=== PATIENT | male | born 1985 | race Caucasian/White ===

== ENCOUNTER 2020-07-10 15:25 | Emergency (ER) ==
[2020-07-10 17:07] LABS: #Lymphocytes 1.2 thou/uL (1.20-3.40); #Monocytes 0.4 thou/uL (0.11-0.59); #Neutrophils 9.8 thou/uL (1.40-6.50); %Basophils 0.1 % (0.0-1.0); %Eosinophils 0.3 % (0.0-10.0); %Lymphocytes 10.4 % (21.0-51.0); %Monocytes 3.5 % (0.0-10.0); %Neutrophils 85.8 % (42.0-75.0); Mean Corpuscular HGB CONC 31.6 g/dL (32.0-36.0); Mean Corpuscular Hemoglobin 27.9 pg (27.0-31.0); Mean Corpuscular Volume 88.3 fL (78.0-98.0); Mean Platelet Volume 9.9 fL (7.4-10.4); Platelet Count 158 thou/uL (130-400); RBC Distribution Width 15.3 % (11.5-14.5); Red Blood Cell (RBC) Count 5.75 mill/uL (4.70-6.10); White Blood Cell (WBC) Count 11.4 thou/uL (4.8-10.8)
[2020-07-10 17:32] LABS: Anion Gap 14 mmol/L (10-20); BUN (Urea Nitrogen) 15 mg/dL (8.9-20.6); Calc. Creatinine Clearance 0 mL/min (70-130); Calcium 9.4 mg/dL (7.8-10.44); Carbon Dioxide 27 mmol/L (22-29); Chloride 101 mmol/L (98-107); Glucose 99 mg/dL (70-105); Potassium 4.2 mmol/L (3.5-5.1); Sodium 138 mmol/L (136-145)
== END 2020-07-10 17:45 | disposition home or self-care (01) ==
LOC: ERS 15:25
DX: I83.892 Varicose veins of left lower extremity with other complications (principal); I10 Essential (primary) hypertension; F17.210 Nicotine dependence, cigarettes, uncomplicated
CPT/HCPCS: 36415; 80048; 85025; 99283

== ENCOUNTER 2022-04-20 13:37 | Inpatient (IN) | payer BC ==
[2022-04-20 14:15] LABS: Hemoglobin 15.8 g/dL (14.0-18.0); Mean Corpuscular HGB CONC 32.4 g/dL (32.0-36.0); Mean Corpuscular Hemoglobin 31.9 pg (27.0-31.0); Mean Corpuscular Volume 98.6 fl (78.0-98.0); RBC Distribution Width 15.9 % (11.5-14.5); Red Blood Cell (RBC) Count 4.93 mill/uL (4.70-6.10)
[2022-04-20 14:17] LABS: Mean Platelet Volume 11.1 fL (7.4-10.4); Platelet Count 121 10x3/uL (130-400); White Blood Cell (WBC) Count 17.5 10x3/uL (4.8-10.8)
[2022-04-20 14:20] LABS: INR-International Normal Ratio 1.2; PTT 34.3 sec (22.9-36.1); Prothrombin Time 15.6 sec (12.0-14.7)
[2022-04-20 14:25] LABS: Band 54 % (5-11); Lymphocytes 1 % (21-51); MDiff Complete? YES; Metamyelocyte 12 % (0-0); Monocytes 3 % (0-10); Myelocyte 1 % (0-0); Neutrophil 28 % (42-75); Nucleated RBC 1 % (0); Platelet Morphology Comment Appears Decreased; RBC Morphology Normal; Reactive Lymphocytes 1 % (0-10); Reflex for Review?? YES; Toxic Granulation SLIGHT; Vacuoles SLIGHT
[2022-04-20] MEDS ORDERED: VANCOMYCIN 2 GRAM/500 ML BAG 2 GM in Premix Bag 1 BAG IVPB SCH (14:30)
[2022-04-20 14:34] LABS: ALT (SGPT) 92 U/L (8-55); AST (SGOT) 213 U/L (5-34); Albumin 2.8 g/dL (3.5-5.0); Alkaline Phosphatase 70 U/L (40-110); Anion Gap 24 mmol/L (10-20); BUN (Urea Nitrogen) 44 mg/dL (8.9-20.6); Bilirubin, Total 2.3 mg/dL (0.2-1.2); Calc. Creatinine Clearance 0 mL/min (70-130); Calcium 8.1 mg/dL (7.8-10.44); Carbon Dioxide 23 mmol/L (22-29); Chloride 84 mmol/L (98-107); Estimated GFR 15; Globulin 3.6 g/dL (2.4-3.5); Glucose 76 mg/dL (70-105); Potassium 4.6 mmol/L (3.5-5.1); Protein, Total 6.4 g/dL (6.0-8.3); Sodium 126 mmol/L (136-145)
[2022-04-20] MEDS ORDERED: Cefepime 2 GM VIAL ONE (14:48)
[2022-04-20 15:02] LABS: CKMB 11.8 ng/mL (0-6.6)
[2022-04-20] MEDS ORDERED: Ondansetron PF 4 MG/2 ML Vial IVP PRN (16:37)
[2022-04-20] MEDS ORDERED: Acetaminophen 325 MG TAB PO PRN (16:37)
[2022-04-20] MEDS ORDERED: Piperacillin/Tazobactam 3.375 GM in Sodium Chloride 0.9% 100 ML IVPB SCH ×2 (17:00→18:15)
[2022-04-20 17:34] LABS: Lactic Acid 5.5 mmol/L (0.5-2.2)
[2022-04-20] MEDS: Sodium Chloride 0.9% 1,000 ML IV SCH (18:00)
[2022-04-20 18:07] LABS: SARS-CoV-2 NAA Rapid Test Not Detected (NotDetected)
[2022-04-20] MEDS: Albumin 25% 25 GM/100 ML BOT IVPB SCH ×2 (18:07→23:20)
[2022-04-20 20:45] LABS: Critical Call Chem Troponin I RESULT DECREASING
[2022-04-20 21:03] LABS: CKMB 13.4 ng/mL (0-6.6)
[2022-04-21] MEDS: Piperacillin/Tazobactam 3.375 GM in Sodium Chloride 0.9% 100 ML IVPB SCH ×3 (01:46→18:31)
[2022-04-21 02:07] LABS: Troponin I 0.215 ng/mL (< 0.028)
[2022-04-21] MEDS: Sodium Chloride 0.9% 1,000 ML IV SCH ×3 (02:13→23:45)
[2022-04-21 04:07] LABS: Band 53 % (5-11); Hemoglobin 13.7 g/dL (14.0-18.0); Hypochromia SLIGHT = 6-15 cells (100X) (0-5/hpf); Lymphocytes 3 % (21-51); MDiff Complete? YES; Mean Corpuscular HGB CONC 32.2 g/dL (32.0-36.0); Mean Corpuscular Hemoglobin 31.4 pg (27.0-31.0); Mean Corpuscular Volume 97.6 fl (78.0-98.0); Mean Platelet Volume 12.3 fL (7.4-10.4); Metamyelocyte 2 % (0-0); Monocytes 4 % (0-10); Neutrophil 37 % (42-75); Platelet Count 101 10x3/uL (130-400); Platelet Morphology Comment Appears Decreased; RBC Distribution Width 15.8 % (11.5-14.5); Reactive Lymphocytes 1 % (0-10); Red Blood Cell (RBC) Count 4.37 mill/uL (4.70-6.10); White Blood Cell (WBC) Count 14.7 10x3/uL (4.8-10.8)
[2022-04-21 04:12] LABS: Anion Gap 20 mmol/L (10-20); BUN (Urea Nitrogen) 49 mg/dL (8.9-20.6); Calc. Creatinine Clearance 44 mL/min (70-130); Calcium 7.7 mg/dL (7.8-10.44); Carbon Dioxide 23 mmol/L (22-29); Cardiac Risk 5.6 (Less than 4.5); Chloride 87 mmol/L (98-107); Cholesterol 62 mg/dl (< 200 Desired); Estimated GFR 14; Glucose 79 mg/dL (70-105); HDL Cholesterol 11 mg/dL (>60 Neg Risk); LDL Cholesterol, Calculated 8 mg/dL; Potassium 4.8 mmol/L (3.5-5.1); Sodium 125 mmol/L (136-145); Triglycerides 216 mg/dL (Less than 150)
[2022-04-21 04:29] LABS: HBCM Index 0.06 S/CO (0-0.79); Hep A IgM AB Non-Reactive (NonReactive); Hep A IgM S/CO 0.16 S/CO (0-0.79); Hep B Surf Ag Non-Reactive S/CO (NonReactive); Hep C IgG Ab Non-Reactive (NonReactive); Hep C Index 0.08 S/CO (0-0.79); Hepatitis B Core IgM Abs Non-Reactive (NonReactive); Thyroid Stimulating Hormone 3.7021 uIU/mL (0.35-4.94)
[2022-04-21 11:56] LABS: Lactic Acid 1.4 mmol/L (0.5-2.2)
[2022-04-21] MEDS: Albumin 25% 25 GM/100 ML BOT IVPB SCH ×2 (11:56→18:31)
[2022-04-21 12:25] LABS: Base Excess (BEa) -2.3 mEq/L (-2.0 to +3.0); Calcium, Ionized (arterial) 0.98 mmol/L (1.12-1.30); Carboxyhemoglobin (COHb) 1.4 gm% (0.0-3.0); Hemoglobin (Hb) 14.5 g/dL (14.0-18.0); O2 Tension (PaO2), arterial 72.7 mmHg (80.0-100.0); Potassium - ABG Lab 4.56 mmol/L (3.70-5.30); pH, Arterial 7.22 (7.35-7.45)
[2022-04-21 13:17] LABS: ALV-art Gradient 99.355 mmHg (0-20); CO2 Tension 67.7 mmHg (35.0-45.0); Puncture Site LRA
[2022-04-21] MEDS ORDERED: VANCOMYCIN 2 GRAM/500 ML BAG 2 GM in Premix Bag 1 BAG IVPB SCH (15:00)
[2022-04-21 15:43] LABS: Sodium 125 mmol/L (136-145)
[2022-04-21] MEDS ORDERED: NOREPINEPHRINE 8 MG/250 ML-D5W 250 ML ONE (18:03)
[2022-04-21] MEDS ORDERED: Furosemide 100 MG/10 ML VIAL SLOW IVP STA (18:21)
[2022-04-21] MEDS: HYDROcodone/Acetaminophen 5/325 mg Tablet PO PRN ×2 (18:21→22:17)
[2022-04-21] MEDS ORDERED: NOREPINEPHRINE 8 MG/250 ML-D5W 250 ML IVPB SCH (18:30)
[2022-04-21 19:36] LABS: Anion Gap 16 mmol/L (10-20); BUN (Urea Nitrogen) 49 mg/dL (8.9-20.6); Calc. Creatinine Clearance 45 mL/min (70-130); Carbon Dioxide 21 mmol/L (22-29); Chloride 96 mmol/L (98-107); Estimated GFR 15; Glucose 65 mg/dL (70-105); Potassium 3.8 mmol/L (3.5-5.1); Sodium 129 mmol/L (136-145)
[2022-04-22] MEDS: Albumin 25% 25 GM/100 ML BOT IVPB SCH ×2 (00:12→05:37)
[2022-04-22 06:20] LABS: ALT (SGPT) 61 U/L (8-55); AST (SGOT) 145 U/L (5-34); Albumin 3.4 g/dL (3.5-5.0); Alkaline Phosphatase 102 U/L (40-110); Anion Gap 21 mmol/L (10-20); BUN (Urea Nitrogen) 62 mg/dL (8.9-20.6); Bilirubin, Total 4.2 mg/dL (0.2-1.2); Calc. Creatinine Clearance 33 mL/min (70-130); Calcium 8.1 mg/dL (7.8-10.44); Carbon Dioxide 24 mmol/L (22-29); Chloride 87 mmol/L (98-107); Estimated GFR 10; Globulin 3.1 g/dL (2.4-3.5); Glucose 71 mg/dL (70-105); Potassium 4.9 mmol/L (3.5-5.1); Protein, Total 6.5 g/dL (6.0-8.3); Sodium 127 mmol/L (136-145)
[2022-04-22 06:29] LABS: Anisocytosis SLIGHT = 6-15 cells (100X) (0-5/hpf); Band 34 % (5-11); Lymphocytes 5 % (21-51); MDiff Complete? YES; Mean Corpuscular HGB CONC 32.3 g/dL (32.0-36.0); Mean Corpuscular Hemoglobin 32.4 pg (27.0-31.0); Mean Platelet Volume 11.6 fL (7.4-10.4); Monocytes 4 % (0-10); Neutrophil 57 % (42-75); Nucleated RBC 1 % (0); Platelet Count 94 10x3/uL (130-400); Platelet Morphology Comment Appears Decreased; Polychromasia SLIGHT = 2-3 cells (100X) (0-2/hpf); RBC Distribution Width 16.1 % (11.5-14.5); Red Blood Cell (RBC) Count 4.33 mill/uL (4.70-6.10); Vacuoles SLIGHT; White Blood Cell (WBC) Count 24.3 10x3/uL (4.8-10.8)
[2022-04-22] MEDS ORDERED: Vancomycin Dose by Levels Sliding Scale (Wt > 99) FS SCH (06:45)
[2022-04-22 07:46] LABS: Vancomycin, Random 36.6 ug/mL (See Comment)
[2022-04-22] MEDS ORDERED: Piperacillin/Tazobactam 2.25 GM in Sodium Chloride 0.9% 100 ML IVPB SCH (08:00)
[2022-04-22] MEDS ORDERED: Heparin 10,000 UNITS/ 10 ML VIAL ONE (10:14)
[2022-04-22 10:32] LABS: HBSAB Concentration Less than 8.00 mIU/mL; HBSAg Index 0.31 S/CO (0-0.99); Hep B Surf AB Non-Reactive (NonReactive); Hep B Surf Ag Non-Reactive S/CO (NonReactive)
[2022-04-22] MEDS: Piperacillin/Tazobactam 3.375 GM in Sodium Chloride 0.9% 100 ML IVPB SCH ×2 (11:20→20:23)
[2022-04-22] MEDS: Sodium Chloride 0.9% 1,000 ML IV SCH ×2 (11:25→20:21)
[2022-04-22] MEDS: Heparin 5,000 UNITS/ML VIAL SC SCH ×2 (14:52→20:22)
[2022-04-23 05:39] VITALS: BMI 47.9
[2022-04-23] MEDS: Sodium Chloride 0.9% 1,000 ML IV SCH (05:45)
[2022-04-23 05:48] LABS: Anion Gap 22 mmol/L (10-20); BUN (Urea Nitrogen) 68 mg/dL (8.9-20.6); Calc. Creatinine Clearance 31 mL/min (70-130); Calcium 7.9 mg/dL (7.8-10.44); Carbon Dioxide 22 mmol/L (22-29); Chloride 88 mmol/L (98-107); Estimated GFR 9; Glucose 61 mg/dL (70-105); Potassium 4.7 mmol/L (3.5-5.1); Sodium 127 mmol/L (136-145)
[2022-04-23 06:07] LABS: Band 45 % (5-11); Hemoglobin 13.3 g/dL (14.0-18.0); Hypochromia SLIGHT = 6-15 cells (100X) (0-5/hpf); Lymphocytes 2 % (21-51); MDiff Complete? YES; Mean Corpuscular HGB CONC 30.5 g/dL (32.0-36.0); Mean Corpuscular Hemoglobin 30.6 pg (27.0-31.0); Mean Platelet Volume 12.7 fL (7.4-10.4); Monocytes 3 % (0-10); Neutrophil 50 % (42-75); Platelet Count 80 10x3/uL (130-400); Platelet Morphology Comment Appears Decreased; RBC Distribution Width 16.4 % (11.5-14.5); Red Blood Cell (RBC) Count 4.36 mill/uL (4.70-6.10); White Blood Cell (WBC) Count 23.5 10x3/uL (4.8-10.8)
[2022-04-23 07:09] LABS: Vancomycin, Random 30.3 ug/mL (See Comment)
[2022-04-23] MEDS ORDERED: FLU VACC QS2022-23(6MOS UP)/PF 60 MCG/0.5 ML SYRINGE IM ONE (09:00)
[2022-04-23] MEDS ORDERED: Electrolyte Replacement Protocol FS SCH (17:15)
[2022-04-23] MEDS ORDERED: Dexmedetomidine In 0.9 % NaCl 100 ML IVPB SCH (17:15)
[2022-04-23] MEDS ORDERED: Lorazepam 2 MG/ML VIAL IM PRN (17:15)
[2022-04-23] MEDS ORDERED: Ondansetron ODT 4 MG TAB PO PRN (17:15)
[2022-04-23] MEDS ORDERED: Lorazepam 1 MG TAB PO PRN (17:15)
[2022-04-23] MEDS: Piperacillin/Tazobactam 3.375 GM in Sodium Chloride 0.9% 100 ML IVPB SCH ×3 (18:43→22:47)
[2022-04-23 19:05] LABS: Phosphorus 7.4 mg/dL (2.3-4.7)
[2022-04-23 19:06] LABS: Magnesium 1.7 mg/dL (1.6-2.6)
[2022-04-23] MEDS: Thiamine HCl 200 MG/2 ML VIAL SLOW IVP SCH (20:06)
[2022-04-23] MEDS: Lorazepam 1 MG TAB PO SCH ×3 (20:09→23:36)
[2022-04-24 04:10] LABS: Anion Gap 20 mmol/L (10-20); BUN (Urea Nitrogen) 66 mg/dL (8.9-20.6); Calc. Creatinine Clearance 32 mL/min (70-130); Calcium 8.5 mg/dL (7.8-10.44); Carbon Dioxide 24 mmol/L (22-29); Chloride 90 mmol/L (98-107); Estimated GFR 10; Glucose 68 mg/dL (70-105); Potassium 4.5 mmol/L (3.5-5.1); Sodium 129 mmol/L (136-145); Vancomycin, Random 25.9 ug/mL (See Comment)
[2022-04-24 04:20] LABS: Anisocytosis SLIGHT = 6-15 cells (100X) (0-5/hpf); Band 12 % (5-11); Large Platelets SLIGHT; Lymphocytes 7 % (21-51); MDiff Complete? YES; Mean Corpuscular HGB CONC 32.2 g/dL (32.0-36.0); Mean Corpuscular Hemoglobin 31.8 pg (27.0-31.0); Mean Corpuscular Volume 98.7 fl (78.0-98.0); Mean Platelet Volume 12.4 fL (7.4-10.4); Monocytes 5 % (0-10); Neutrophil 76 % (42-75); Nucleated RBC 2 % (0); Platelet Count 80 10x3/uL (130-400); Platelet Morphology Comment Appears Decreased; Polychromasia SLIGHT = 2-3 cells (100X) (0-2/hpf); RBC Distribution Width 16.7 % (11.5-14.5); Toxic Granulation SLIGHT
[2022-04-24] MEDS: Lorazepam 1 MG TAB PO SCH ×3 (05:00→18:45)
[2022-04-24] MEDS: Piperacillin/Tazobactam 3.375 GM in Sodium Chloride 0.9% 100 ML IVPB SCH ×2 (08:50→20:50)
[2022-04-24] MEDS: Multivit, Therapeutic 1 TAB PO SCH (08:51)
[2022-04-24] MEDS: Nicotine 21 MG PATCH TD SCH (08:52)
[2022-04-24] MEDS: Folic Acid 1 MG TAB PO SCH (08:52)
[2022-04-24] MEDS ORDERED: Lorazepam 1 MG TAB PO PRN (17:15)
[2022-04-24] MEDS: Thiamine HCl 200 MG/2 ML VIAL SLOW IVP SCH (18:47)
[2022-04-25] MEDS: Lorazepam 1 MG TAB PO SCH ×5 (00:52→19:10)
[2022-04-25 04:37] LABS: Anion Gap 20 mmol/L (10-20); Calc. Creatinine Clearance 35 mL/min (70-130); Calcium 8.2 mg/dL (7.8-10.44); Carbon Dioxide 19 mmol/L (22-29); Chloride 95 mmol/L (98-107); Estimated GFR 11; Glucose 66 mg/dL (70-105); Potassium 4.6 mmol/L (3.5-5.1); Sodium 129 mmol/L (136-145)
[2022-04-25 05:20] LABS: Band 18 % (5-11); Eosinophils 1 % (0-10); Hemoglobin 13.4 g/dL (14.0-18.0); Lymphocytes 2 % (21-51); MDiff Complete? YES; Mean Corpuscular Hemoglobin 30.3 pg (27.0-31.0); Mean Corpuscular Volume 97.5 fl (78.0-98.0); Mean Platelet Volume 11.9 fL (7.4-10.4); Metamyelocyte 1 % (0-0); Monocytes 6 % (0-10); Myelocyte 3 % (0-0); Neutrophil 69 % (42-75); Platelet Count 102 10x3/uL (130-400); Platelet Morphology Comment Appears Decreased; RBC Distribution Width 16.6 % (11.5-14.5); Red Blood Cell (RBC) Count 4.45 mill/uL (4.70-6.10); Toxic Granulation SLIGHT; White Blood Cell (WBC) Count 24.4 10x3/uL (4.8-10.8)
[2022-04-25 07:33] LABS: BUN (Urea Nitrogen) 65 mg/dL (8.9-20.6)
[2022-04-25] MEDS: Piperacillin/Tazobactam 3.375 GM in Sodium Chloride 0.9% 100 ML IVPB SCH ×2 (08:36→20:29)
[2022-04-25] MEDS: Nicotine 21 MG PATCH TD SCH (08:37)
[2022-04-25 08:48] LABS: Actual Bicarbonate (HCO3v) 24 mEq/L (22-28); Base Excess -1.4 mEq/L (-2.0 to +3.0); Chloride (VBG) 94 mmol/L (98-106); Hemoglobin (Hb) 14.8 g/dL (13.2-17.3); Potassium (VBG) 4.35 mmol/L (3.70-5.30); pH (venous) 7.35 (7.32-7.43)
[2022-04-25 08:54] LABS: Magnesium 1.9 mg/dL (1.6-2.6)
[2022-04-25] MEDS ORDERED: Heparin 5,000 UNITS/ML VIAL SC SCH (09:00)
[2022-04-25] MEDS: Folic Acid 1 MG TAB PO SCH (11:36)
[2022-04-25] MEDS: Multivit, Therapeutic 1 TAB PO SCH (11:37)
[2022-04-25] MEDS: Pantoprazole 40 MG VIAL IVP SCH (11:39)
[2022-04-25] MEDS ORDERED: Heparin 10,000 UNITS/ 10 ML VIAL ONE (12:33)
[2022-04-25] MEDS ORDERED: Albumin 25% 25 GM/100 ML BOT IVPB SCH (14:45)
[2022-04-25] MEDS ORDERED: Lorazepam 1 MG TAB PO PRN (17:15)
[2022-04-25] MEDS: Lorazepam 0.5 MG TAB PO SCH (19:11)
[2022-04-25] MEDS: Heparin 5,000 UNITS/ML VIAL SC SCH (20:29)
[2022-04-25] MEDS: Thiamine HCl 200 MG/2 ML VIAL SLOW IVP SCH (20:33)
[2022-04-26] MEDS: Lorazepam 0.5 MG TAB PO SCH ×4 (00:42→17:41)
[2022-04-26] MEDS ORDERED: Lorazepam 2 MG/ML VIAL SLOW IVP SCH (01:15)
[2022-04-26 04:58] LABS: Hemoglobin 13.6 g/dL (14.0-18.0); Mean Corpuscular HGB CONC 31.1 g/dL (32.0-36.0); Mean Corpuscular Hemoglobin 30.6 pg (27.0-31.0); Mean Corpuscular Volume 98.4 fl (78.0-98.0); Platelet Count 111 10x3/uL (130-400); RBC Distribution Width 16.5 % (11.5-14.5); Red Blood Cell (RBC) Count 4.44 mill/uL (4.70-6.10); White Blood Cell (WBC) Count 22.9 10x3/uL (4.8-10.8)
[2022-04-26 05:11] LABS: ALT (SGPT) 37 U/L (8-55); AST (SGOT) 53 U/L (5-34); Albumin 3.1 g/dL (3.5-5.0); Alkaline Phosphatase 241 U/L (40-110); Anion Gap 16 mmol/L (10-20); BUN (Urea Nitrogen) 48 mg/dL (8.9-20.6); Bilirubin, Total 2.2 mg/dL (0.2-1.2); Calc. Creatinine Clearance 42 mL/min (70-130); Calcium 8.6 mg/dL (7.8-10.44); Carbon Dioxide 27 mmol/L (22-29); Chloride 96 mmol/L (98-107); Estimated GFR 13; Globulin 4.1 g/dL (2.4-3.5); Glucose 70 mg/dL (70-105); Potassium 4.6 mmol/L (3.5-5.1); Protein, Total 7.2 g/dL (6.0-8.3); Sodium 134 mmol/L (136-145)
[2022-04-26 05:44] LABS: Band 17 % (5-11); Eosinophils 1 % (0-10); Lymphocytes 12 % (21-51); MDiff Complete? YES; Monocytes 2 % (0-10); Neutrophil 68 % (42-75); Platelet Morphology Comment Appears Decreased
[2022-04-26] MEDS: Multivit, Therapeutic 1 TAB PO SCH (09:50)
[2022-04-26] MEDS: Pantoprazole 40 MG VIAL IVP SCH (09:50)
[2022-04-26] MEDS: Folic Acid 1 MG TAB PO SCH (09:50)
[2022-04-26] MEDS: Piperacillin/Tazobactam 3.375 GM in Sodium Chloride 0.9% 100 ML IVPB SCH ×2 (09:50→20:39)
[2022-04-26] MEDS: Nicotine 21 MG PATCH TD SCH (09:51)
[2022-04-26] MEDS: Heparin 5,000 UNITS/ML VIAL SC SCH ×2 (09:51→20:40)
[2022-04-26] MEDS ORDERED: Lorazepam 0.5 MG TAB PO PRN (17:15)
[2022-04-26] MEDS: Thiamine 100 MG TAB PO SCH (17:41)
[2022-04-27 05:09] LABS: Hemoglobin 12.6 g/dL (14.0-18.0); Mean Corpuscular HGB CONC 31.2 g/dL (32.0-36.0); Mean Corpuscular Hemoglobin 30.2 pg (27.0-31.0); Mean Corpuscular Volume 96.7 fl (78.0-98.0); Mean Platelet Volume 10.3 fL (7.4-10.4); Platelet Count 123 10x3/uL (130-400); RBC Distribution Width 16.4 % (11.5-14.5); Red Blood Cell (RBC) Count 4.16 mill/uL (4.70-6.10); White Blood Cell (WBC) Count 20.4 10x3/uL (4.8-10.8)
[2022-04-27 05:21] LABS: Anion Gap 17 mmol/L (10-20); BUN (Urea Nitrogen) 68 mg/dL (8.9-20.6); Calc. Creatinine Clearance 32 mL/min (70-130); Calcium 8.2 mg/dL (7.8-10.44); Carbon Dioxide 26 mmol/L (22-29); Chloride 96 mmol/L (98-107); Estimated GFR 10; Glucose 80 mg/dL (70-105); Potassium 4.6 mmol/L (3.5-5.1); Sodium 134 mmol/L (136-145)
[2022-04-27 05:57] LABS: Band 14 % (5-11); Lymphocytes 12 % (21-51); MDiff Complete? YES; Metamyelocyte 2 % (0-0); Monocytes 9 % (0-10); Neutrophil 63 % (42-75)
[2022-04-27] MEDS: Nicotine 21 MG PATCH TD SCH (08:46)
[2022-04-27] MEDS: Heparin 5,000 UNITS/ML VIAL SC SCH ×2 (08:46→22:10)
[2022-04-27] MEDS: Pantoprazole 40 MG VIAL IVP SCH (08:47)
[2022-04-27] MEDS: Folic Acid 1 MG TAB PO SCH (08:47)
[2022-04-27] MEDS: Multivit, Therapeutic 1 TAB PO SCH (08:47)
[2022-04-27] MEDS: Piperacillin/Tazobactam 3.375 GM in Sodium Chloride 0.9% 100 ML IVPB SCH ×2 (08:48→22:09)
[2022-04-27] MEDS: Thiamine 100 MG TAB PO SCH (17:28)
[2022-04-27] MEDS: HYDROcodone/Acetaminophen 5/325 mg Tablet PO PRN (22:08)
[2022-04-28 05:25] LABS: ALT (SGPT) 29 U/L (8-55); AST (SGOT) 41 U/L (5-34); Albumin 2.7 g/dL (3.5-5.0); Alkaline Phosphatase 217 U/L (40-110); Anion Gap 19 mmol/L (10-20); BUN (Urea Nitrogen) 80 mg/dL (8.9-20.6); Bilirubin, Total 1.4 mg/dL (0.2-1.2); Calc. Creatinine Clearance 28 mL/min (70-130); Calcium 7.7 mg/dL (7.8-10.44); Carbon Dioxide 23 mmol/L (22-29); Chloride 96 mmol/L (98-107); Estimated GFR 9; Globulin 4.2 g/dL (2.4-3.5); Glucose 88 mg/dL (70-105); Potassium 4.9 mmol/L (3.5-5.1); Protein, Total 6.9 g/dL (6.0-8.3); Sodium 133 mmol/L (136-145)
[2022-04-28 06:46] LABS: Hemoglobin 12.3 g/dL (14.0-18.0); Mean Corpuscular HGB CONC 31.5 g/dL (32.0-36.0); Mean Corpuscular Hemoglobin 30.5 pg (27.0-31.0); Mean Corpuscular Volume 96.6 fl (78.0-98.0); Mean Platelet Volume 10.6 fL (7.4-10.4); Platelet Count 132 10x3/uL (130-400); RBC Distribution Width 16.5 % (11.5-14.5); Red Blood Cell (RBC) Count 4.04 mill/uL (4.70-6.10)
[2022-04-28] MEDS: Piperacillin/Tazobactam 3.375 GM in Sodium Chloride 0.9% 100 ML IVPB SCH (10:00)
[2022-04-28] MEDS ORDERED: Penicillin G Potassium 4 MILL.UNITS in Sodium Chloride 0.9% 50 ML IVPB SCH (10:00)
[2022-04-28] MEDS: Nicotine 21 MG PATCH TD SCH (10:02)
[2022-04-28] MEDS: Heparin 5,000 UNITS/ML VIAL SC SCH ×2 (10:02→20:19)
[2022-04-28] MEDS: Pantoprazole 40 MG VIAL IVP SCH (10:02)
[2022-04-28] MEDS: Multivit, Therapeutic 1 TAB PO SCH (10:02)
[2022-04-28] MEDS: Folic Acid 1 MG TAB PO SCH (10:02)
[2022-04-28] MEDS: HYDROcodone/Acetaminophen 5/325 mg Tablet PO PRN ×2 (11:18→23:35)
[2022-04-28 11:19] LABS: Band 12 % (5-11); Eosinophils 1 % (0-10); Lymphocytes 3 % (21-51); MDiff Complete? YES; Monocytes 5 % (0-10); Myelocyte 1 % (0-0); Neutrophil 77 % (42-75); RBC Morphology Normal; Reactive Lymphocytes 1 % (0-10)
[2022-04-28] MEDS: Thiamine 100 MG TAB PO SCH (20:18)
[2022-04-28] MEDS: Penicillin G Potassium 4 MILL.UNITS in Sodium Chloride 0.9% 50 ML IVPB SCH (20:19)
[2022-04-29 04:28] LABS: Anion Gap 16 mmol/L (10-20); BUN (Urea Nitrogen) 50 mg/dL (8.9-20.6); Calc. Creatinine Clearance 39 mL/min (70-130); Calcium 7.7 mg/dL (7.8-10.44); Carbon Dioxide 25 mmol/L (22-29); Chloride 96 mmol/L (98-107); Estimated GFR 13; Glucose 86 mg/dL (70-105); Potassium 4.7 mmol/L (3.5-5.1); Sodium 132 mmol/L (136-145)
[2022-04-29 04:37] LABS: Hemoglobin 12.3 g/dL (14.0-18.0); Mean Corpuscular HGB CONC 31.6 g/dL (32.0-36.0); Mean Corpuscular Hemoglobin 30.2 pg (27.0-31.0); Mean Corpuscular Volume 95.8 fl (78.0-98.0); Mean Platelet Volume 10.3 fL (7.4-10.4); Platelet Count 148 10x3/uL (130-400); RBC Distribution Width 16.4 % (11.5-14.5); Red Blood Cell (RBC) Count 4.06 mill/uL (4.70-6.10); White Blood Cell (WBC) Count 20.6 10x3/uL (4.8-10.8)
[2022-04-29 05:17] LABS: Band 8 % (5-11); Lymphocytes 4 % (21-51); MDiff Complete? YES; Monocytes 2 % (0-10); Neutrophil 86 % (42-75); Toxic Granulation SLIGHT
[2022-04-29] MEDS: Multivit, Therapeutic 1 TAB PO SCH (09:21)
[2022-04-29] MEDS: Folic Acid 1 MG TAB PO SCH (09:21)
[2022-04-29] MEDS: Heparin 5,000 UNITS/ML VIAL SC SCH ×2 (09:21→20:01)
[2022-04-29] MEDS: Nicotine 21 MG PATCH TD SCH (09:21)
[2022-04-29] MEDS: Pantoprazole 40 MG VIAL IVP SCH (09:21)
[2022-04-29] MEDS: Penicillin G Potassium 4 MILL.UNITS in Sodium Chloride 0.9% 50 ML IVPB SCH ×2 (10:22→20:01)
[2022-04-29] MEDS: HYDROcodone/Acetaminophen 5/325 mg Tablet PO PRN (10:36)
[2022-04-29] MEDS: Thiamine 100 MG TAB PO SCH (17:52)
[2022-04-30 04:41] LABS: Hemoglobin 12.3 g/dL (14.0-18.0); Mean Corpuscular HGB CONC 31.4 g/dL (32.0-36.0); Mean Corpuscular Hemoglobin 29.8 pg (27.0-31.0); Mean Corpuscular Volume 94.9 fl (78.0-98.0); Mean Platelet Volume 10.5 fL (7.4-10.4); Platelet Count 172 10x3/uL (130-400); RBC Distribution Width 16.3 % (11.5-14.5); Red Blood Cell (RBC) Count 4.14 mill/uL (4.70-6.10); White Blood Cell (WBC) Count 18.3 10x3/uL (4.8-10.8)
[2022-04-30 04:54] LABS: Anion Gap 16 mmol/L (10-20); BUN (Urea Nitrogen) 69 mg/dL (8.9-20.6); Calc. Creatinine Clearance 31 mL/min (70-130); Calcium 7.9 mg/dL (7.8-10.44); Carbon Dioxide 24 mmol/L (22-29); Chloride 94 mmol/L (98-107); Estimated GFR 11; Glucose 70 mg/dL (70-105); Potassium 5.4 mmol/L (3.5-5.1); Sodium 129 mmol/L (136-145)
[2022-04-30 05:30] LABS: Anisocytosis SLIGHT = 6-15 cells (100X) (0-5/hpf); Band 1 % (5-11); Lymphocytes 4 % (21-51); MDiff Complete? YES; Monocytes 5 % (0-10); Neutrophil 90 % (42-75); Platelet Morphology Comment Appears Adequate; Polychromasia SLIGHT = 2-3 cells (100X) (0-2/hpf); Stomatocytes SLIGHT = 2-5 cells (100X) (0-1/hpf); Toxic Granulation SLIGHT
[2022-04-30] MEDS ORDERED: Heparin 10,000 UNITS/ 10 ML VIAL ONE (08:13)
[2022-04-30] MEDS: Nicotine 21 MG PATCH TD SCH (08:35)
[2022-04-30] MEDS: Heparin 5,000 UNITS/ML VIAL SC SCH ×2 (08:57→20:23)
[2022-04-30] MEDS: Multivit, Therapeutic 1 TAB PO SCH (08:57)
[2022-04-30] MEDS: Folic Acid 1 MG TAB PO SCH (08:57)
[2022-04-30] MEDS: Pantoprazole 40 MG VIAL IVP SCH (08:57)
[2022-04-30] MEDS: Labetalol HCl 100 MG/20 ML VIAL SLOW IVP PRN (09:51)
[2022-04-30] MEDS: Penicillin G Potassium 4 MILL.UNITS in Sodium Chloride 0.9% 50 ML IVPB SCH ×2 (13:32→20:24)
[2022-04-30] MEDS ORDERED: diphenhydrAMINE 25 MG CAP PO PRN (15:08)
[2022-04-30] MEDS: Thiamine 100 MG TAB PO SCH (17:43)
[2022-04-30] MEDS: HYDROcodone/Acetaminophen 5/325 mg Tablet PO PRN (19:14)
[2022-05-01 04:27] LABS: #Basophils 0.1 thou/uL (0.0-0.2); #Eosinphils 0.1 thou/uL (0.0-0.7); #Lymphocytes 1.2 thou/uL (1.20-3.40); #Monocytes 1.1 thou/uL (0.11-0.59); #Neutrophils 15.3 thou/uL (1.40-6.50); %Basophils 0.3 % (0.0-1.0); %Eosinophils 0.4 % (0.0-10.0); %Lymphocytes 6.6 % (21.0-51.0); %Monocytes 6.4 % (0.0-10.0); %Neutrophils 86.3 % (42.0-75.0); Hemoglobin 12.5 g/dL (14.0-18.0); Mean Corpuscular HGB CONC 32.3 g/dL (32.0-36.0); Mean Corpuscular Hemoglobin 30.7 pg (27.0-31.0); Mean Corpuscular Volume 94.9 fl (78.0-98.0); Mean Platelet Volume 9.9 fL (7.4-10.4); Platelet Count 199 10x3/uL (130-400); RBC Distribution Width 16.2 % (11.5-14.5); Red Blood Cell (RBC) Count 4.07 mill/uL (4.70-6.10); White Blood Cell (WBC) Count 17.8 10x3/uL (4.8-10.8)
[2022-05-01 04:50] LABS: Anion Gap 17 mmol/L (10-20); BUN (Urea Nitrogen) 53 mg/dL (8.9-20.6); Calc. Creatinine Clearance 36 mL/min (70-130); Calcium 8.1 mg/dL (7.8-10.44); Carbon Dioxide 24 mmol/L (22-29); Chloride 96 mmol/L (98-107); Estimated GFR 12; Glucose 99 mg/dL (70-105); Potassium 4.8 mmol/L (3.5-5.1); Sodium 132 mmol/L (136-145)
[2022-05-01] MEDS: Folic Acid 1 MG TAB PO SCH (07:58)
[2022-05-01] MEDS: Multivit, Therapeutic 1 TAB PO SCH (07:59)
[2022-05-01] MEDS: Nicotine 21 MG PATCH TD SCH (07:59)
[2022-05-01] MEDS: Pantoprazole 40 MG VIAL IVP SCH (07:59)
[2022-05-01] MEDS: Heparin 5,000 UNITS/ML VIAL SC SCH (07:59)
[2022-05-01] MEDS: Penicillin G Potassium 4 MILL.UNITS in Sodium Chloride 0.9% 50 ML IVPB SCH (10:01)
[2022-05-01] MEDS ORDERED: Carvedilol 6.25 MG TAB PO SCH (11:00)
[2022-05-01] MEDS: Oxymetazoline HCl 0.05% (30 ML BOT) NS PRN ×2 (11:43→16:09)
[2022-05-01] MEDS: HYDROcodone/Acetaminophen 5/325 mg Tablet PO PRN (14:40)
[2022-05-01] MEDS: Carvedilol 6.25 MG TAB PO SCH (16:10)
[2022-05-01] MEDS ORDERED: Oxacillin 2 GM in Sodium Chloride 0.9% 100 ML IVPB SCH (18:00)
[2022-05-01] MEDS: Oxacillin 2 GM in Sodium Chloride 0.9% 100 ML IVPB SCH ×2 (18:21→22:15)
[2022-05-01] MEDS: Thiamine 100 MG TAB PO SCH (18:21)
[2022-05-02] MEDS: Oxacillin 2 GM in Sodium Chloride 0.9% 100 ML IVPB SCH ×6 (01:56→20:13)
[2022-05-02 05:30] LABS: #Basophils 0.1 thou/uL (0.0-0.2); #Eosinphils 0.1 thou/uL (0.0-0.7); #Lymphocytes 1.3 thou/uL (1.20-3.40); #Neutrophils 15.3 thou/uL (1.40-6.50); %Basophils 0.7 % (0.0-1.0); %Eosinophils 0.6 % (0.0-10.0); %Lymphocytes 7.2 % (21.0-51.0); %Monocytes 5.7 % (0.0-10.0); %Neutrophils 85.7 % (42.0-75.0); Hemoglobin 12.1 g/dL (14.0-18.0); Mean Corpuscular HGB CONC 31.5 g/dL (32.0-36.0); Mean Platelet Volume 9.9 fL (7.4-10.4); Platelet Count 239 10x3/uL (130-400); RBC Distribution Width 16.2 % (11.5-14.5); Red Blood Cell (RBC) Count 4.04 mill/uL (4.70-6.10); White Blood Cell (WBC) Count 17.8 10x3/uL (4.8-10.8)
[2022-05-02 05:49] LABS: Anion Gap 17 mmol/L (10-20); BUN (Urea Nitrogen) 73 mg/dL (8.9-20.6); Calc. Creatinine Clearance 28 mL/min (70-130); Carbon Dioxide 22 mmol/L (22-29); Chloride 96 mmol/L (98-107); Estimated GFR 10; Glucose 79 mg/dL (70-105); Potassium 5.3 mmol/L (3.5-5.1); Sodium 130 mmol/L (136-145)
[2022-05-02] MEDS ORDERED: Heparin 10,000 UNITS/ 10 ML VIAL ONE (11:52)
[2022-05-02] MEDS: Multivit, Therapeutic 1 TAB PO SCH (14:12)
[2022-05-02] MEDS: Pantoprazole 40 MG VIAL IVP SCH (14:12)
[2022-05-02] MEDS: Folic Acid 1 MG TAB PO SCH (14:12)
[2022-05-02] MEDS: Nicotine 21 MG PATCH TD SCH (14:12)
[2022-05-02] MEDS: Carvedilol 6.25 MG TAB PO SCH ×2 (14:12→17:40)
[2022-05-02] MEDS: Thiamine 100 MG TAB PO SCH (17:59)
[2022-05-02] MEDS: HYDROcodone/Acetaminophen 5/325 mg Tablet PO PRN (18:23)
[2022-05-03] MEDS: Oxacillin 2 GM in Sodium Chloride 0.9% 100 ML IVPB SCH ×6 (00:57→20:01)
[2022-05-03 04:45] LABS: #Basophils 0.1 thou/uL (0.0-0.2); #Eosinphils 0.1 thou/uL (0.0-0.7); #Lymphocytes 1.3 thou/uL (1.20-3.40); #Monocytes 1.2 thou/uL (0.11-0.59); #Neutrophils 12.5 thou/uL (1.40-6.50); %Basophils 0.8 % (0.0-1.0); %Eosinophils 0.6 % (0.0-10.0); %Lymphocytes 8.4 % (21.0-51.0); %Monocytes 7.8 % (0.0-10.0); %Neutrophils 82.5 % (42.0-75.0); Mean Corpuscular HGB CONC 32.3 g/dL (32.0-36.0); Mean Corpuscular Hemoglobin 30.7 pg (27.0-31.0); Mean Corpuscular Volume 95.2 fl (78.0-98.0); Mean Platelet Volume 9.6 fL (7.4-10.4); Platelet Count 257 10x3/uL (130-400); White Blood Cell (WBC) Count 15.1 10x3/uL (4.8-10.8)
[2022-05-03 05:02] LABS: Anion Gap 16 mmol/L (10-20); BUN (Urea Nitrogen) 49 mg/dL (8.9-20.6); Calc. Creatinine Clearance 34 mL/min (70-130); Calcium 8.4 mg/dL (7.8-10.44); Carbon Dioxide 25 mmol/L (22-29); Chloride 95 mmol/L (98-107); Estimated GFR 12; Glucose 78 mg/dL (70-105); Sodium 131 mmol/L (136-145)
[2022-05-03] MEDS: Carvedilol 6.25 MG TAB PO SCH ×2 (08:30→17:36)
[2022-05-03] MEDS: Pantoprazole 40 MG VIAL IVP SCH (08:30)
[2022-05-03] MEDS: Multivit, Therapeutic 1 TAB PO SCH (08:30)
[2022-05-03] MEDS: Folic Acid 1 MG TAB PO SCH (08:30)
[2022-05-03] MEDS: Nicotine 21 MG PATCH TD SCH (08:30)
[2022-05-03] MEDS: HYDROcodone/Acetaminophen 5/325 mg Tablet PO PRN ×2 (12:20→16:40)
[2022-05-03] MEDS: Thiamine 100 MG TAB PO SCH (17:36)
[2022-05-03] MEDS: Heparin 5,000 UNITS/ML VIAL SC SCH (20:01)
[2022-05-04] MEDS: Oxacillin 2 GM in Sodium Chloride 0.9% 100 ML IVPB SCH ×6 (01:00→20:11)
[2022-05-04] MEDS: HYDROcodone/Acetaminophen 5/325 mg Tablet PO PRN (04:41)
[2022-05-04 05:20] LABS: #Basophils 0.1 thou/uL (0.0-0.2); #Eosinphils 0.1 thou/uL (0.0-0.7); #Lymphocytes 0.9 thou/uL (1.20-3.40); #Monocytes 1.1 thou/uL (0.11-0.59); #Neutrophils 16.5 thou/uL (1.40-6.50); %Basophils 0.3 % (0.0-1.0); %Eosinophils 0.5 % (0.0-10.0); %Monocytes 6.1 % (0.0-10.0); %Neutrophils 88.1 % (42.0-75.0); Hemoglobin 11.8 g/dL (14.0-18.0); Mean Corpuscular HGB CONC 33.2 g/dL (32.0-36.0); Mean Corpuscular Hemoglobin 31.4 pg (27.0-31.0); Mean Corpuscular Volume 94.6 fl (78.0-98.0); Mean Platelet Volume 9.4 fL (7.4-10.4); Platelet Count 287 10x3/uL (130-400); Red Blood Cell (RBC) Count 3.76 mill/uL (4.70-6.10); White Blood Cell (WBC) Count 18.7 10x3/uL (4.8-10.8)
[2022-05-04 05:44] LABS: Anion Gap 17 mmol/L (10-20); BUN (Urea Nitrogen) 63 mg/dL (8.9-20.6); Calc. Creatinine Clearance 30 mL/min (70-130); Carbon Dioxide 22 mmol/L (22-29); Chloride 90 mmol/L (98-107); Estimated GFR 11; Glucose 72 mg/dL (70-105); Potassium 5.5 mmol/L (3.5-5.1); Sodium 123 mmol/L (136-145)
[2022-05-04] MEDS: Nicotine 21 MG PATCH TD SCH (08:13)
[2022-05-04] MEDS: Heparin 5,000 UNITS/ML VIAL SC SCH ×2 (08:13→20:11)
[2022-05-04] MEDS: Pantoprazole 40 MG VIAL IVP SCH (08:14)
[2022-05-04] MEDS: Folic Acid 1 MG TAB PO SCH (08:14)
[2022-05-04] MEDS: Carvedilol 6.25 MG TAB PO SCH ×2 (08:14→16:55)
[2022-05-04] MEDS: Multivit, Therapeutic 1 TAB PO SCH (08:14)
[2022-05-04] MEDS: Thiamine 100 MG TAB PO SCH (16:55)
[2022-05-05] MEDS: Oxacillin 2 GM in Sodium Chloride 0.9% 100 ML IVPB SCH ×6 (00:37→21:20)
[2022-05-05] MEDS: HYDROcodone/Acetaminophen 5/325 mg Tablet PO PRN ×2 (05:06→18:31)
[2022-05-05 07:17] LABS: Anion Gap 20 mmol/L (10-20); BUN (Urea Nitrogen) 77 mg/dL (8.9-20.6); Calc. Creatinine Clearance 25 mL/min (70-130); Calcium 7.7 mg/dL (7.8-10.44); Carbon Dioxide 18 mmol/L (22-29); Chloride 92 mmol/L (98-107); Estimated GFR 9; Glucose 86 mg/dL (70-105); Potassium 5.4 mmol/L (3.5-5.1); Sodium 125 mmol/L (136-145)
[2022-05-05 07:18] LABS: Hemoglobin 11.2 g/dL (14.0-18.0); Mean Corpuscular HGB CONC 33.4 g/dL (32.0-36.0); Mean Corpuscular Hemoglobin 31.4 pg (27.0-31.0); Mean Corpuscular Volume 94.1 fl (78.0-98.0); Mean Platelet Volume 9.6 fL (7.4-10.4); Platelet Count 294 10x3/uL (130-400); RBC Distribution Width 16.1 % (11.5-14.5); Red Blood Cell (RBC) Count 3.56 mill/uL (4.70-6.10); White Blood Cell (WBC) Count 17.4 10x3/uL (4.8-10.8)
[2022-05-05] MEDS: Heparin 5,000 UNITS/ML VIAL SC SCH ×2 (08:02→21:21)
[2022-05-05] MEDS: Nicotine 21 MG PATCH TD SCH (08:03)
[2022-05-05] MEDS: Pantoprazole 40 MG VIAL IVP SCH (08:03)
[2022-05-05] MEDS: Carvedilol 6.25 MG TAB PO SCH ×2 (08:04→16:22)
[2022-05-05] MEDS: Multivit, Therapeutic 1 TAB PO SCH (08:04)
[2022-05-05] MEDS: Folic Acid 1 MG TAB PO SCH (08:04)
[2022-05-05 08:11] LABS: Band 6 % (5-11); Eosinophils 2 % (0-10); Lymphocytes 7 % (21-51); MDiff Complete? YES; Monocytes 2 % (0-10); Neutrophil 82 % (42-75); RBC Morphology Normal
[2022-05-05] MEDS ORDERED: Heparin 10,000 UNITS/ 10 ML VIAL ONE (10:07)
[2022-05-05] MEDS: Thiamine 100 MG TAB PO SCH (16:22)
[2022-05-06] MEDS: Oxacillin 2 GM in Sodium Chloride 0.9% 100 ML IVPB SCH ×5 (01:51→17:47)
[2022-05-06] MEDS: HYDROcodone/Acetaminophen 5/325 mg Tablet PO PRN ×2 (05:24→21:59)
[2022-05-06 05:59] LABS: #Basophils 0.1 thou/uL (0.0-0.2); #Eosinphils 0.1 thou/uL (0.0-0.7); #Lymphocytes 0.8 thou/uL (1.20-3.40); #Neutrophils 11.3 thou/uL (1.40-6.50); %Basophils 0.6 % (0.0-1.0); %Eosinophils 0.7 % (0.0-10.0); %Lymphocytes 6.1 % (21.0-51.0); %Monocytes 7.4 % (0.0-10.0); %Neutrophils 85.1 % (42.0-75.0); Hemoglobin 11.3 g/dL (14.0-18.0); Mean Corpuscular HGB CONC 32.1 g/dL (32.0-36.0); Mean Corpuscular Hemoglobin 30.4 pg (27.0-31.0); Mean Corpuscular Volume 94.8 fl (78.0-98.0); Mean Platelet Volume 8.9 fL (7.4-10.4); Platelet Count 338 10x3/uL (130-400); RBC Distribution Width 15.9 % (11.5-14.5); Red Blood Cell (RBC) Count 3.71 mill/uL (4.70-6.10); White Blood Cell (WBC) Count 13.3 10x3/uL (4.8-10.8)
[2022-05-06 06:23] LABS: Anion Gap 18 mmol/L (10-20); BUN (Urea Nitrogen) 46 mg/dL (8.9-20.6); Calc. Creatinine Clearance 35 mL/min (70-130); Calcium 8.2 mg/dL (7.8-10.44); Carbon Dioxide 22 mmol/L (22-29); Chloride 96 mmol/L (98-107); Estimated GFR 13; Glucose 82 mg/dL (70-105); Potassium 4.8 mmol/L (3.5-5.1); Sodium 131 mmol/L (136-145)
[2022-05-06] MEDS: Carvedilol 6.25 MG TAB PO SCH ×2 (09:14→17:47)
[2022-05-06] MEDS: Folic Acid 1 MG TAB PO SCH (09:14)
[2022-05-06] MEDS: Nicotine 21 MG PATCH TD SCH (09:15)
[2022-05-06] MEDS: Multivit, Therapeutic 1 TAB PO SCH (09:15)
[2022-05-06] MEDS: Heparin 5,000 UNITS/ML VIAL SC SCH ×2 (09:15→20:14)
[2022-05-06] MEDS: Sevelamer Carbonate 800 MG TAB PO SCH ×2 (12:15→17:47)
[2022-05-06] MEDS: Thiamine 100 MG TAB PO SCH (17:47)
[2022-05-06] MEDS: Cephalexin 250 MG CAP PO SCH (18:36)
[2022-05-07 06:29] LABS: #Basophils 0.1 thou/uL (0.0-0.2); #Eosinphils 0.1 thou/uL (0.0-0.7); #Lymphocytes 0.9 thou/uL (1.20-3.40); #Neutrophils 8.4 thou/uL (1.40-6.50); %Basophils 0.9 % (0.0-1.0); %Eosinophils 1.3 % (0.0-10.0); %Lymphocytes 8.4 % (21.0-51.0); %Monocytes 9.3 % (0.0-10.0); %Neutrophils 80.1 % (42.0-75.0); Mean Corpuscular HGB CONC 32.5 g/dL (32.0-36.0); Mean Corpuscular Hemoglobin 30.7 pg (27.0-31.0); Mean Corpuscular Volume 94.4 fl (78.0-98.0); Mean Platelet Volume 8.7 fL (7.4-10.4); Platelet Count 308 10x3/uL (130-400); RBC Distribution Width 15.8 % (11.5-14.5); Red Blood Cell (RBC) Count 3.59 mill/uL (4.70-6.10); White Blood Cell (WBC) Count 10.5 10x3/uL (4.8-10.8)
[2022-05-07 06:48] LABS: Anion Gap 19 mmol/L (10-20); BUN (Urea Nitrogen) 59 mg/dL (8.9-20.6); Calc. Creatinine Clearance 29 mL/min (70-130); Carbon Dioxide 21 mmol/L (22-29); Chloride 97 mmol/L (98-107); Potassium 4.9 mmol/L (3.5-5.1); Sodium 132 mmol/L (136-145)
[2022-05-07 06:49] LABS: Calcium 8.1 mg/dL (7.8-10.44); Estimated GFR 10; Glucose 93 mg/dL (70-105)
[2022-05-07] MEDS: Sevelamer Carbonate 800 MG TAB PO SCH ×3 (08:00→17:53)
[2022-05-07] MEDS: Heparin 5,000 UNITS/ML VIAL SC SCH ×2 (08:04→20:39)
[2022-05-07] MEDS: Nicotine 21 MG PATCH TD SCH (08:04)
[2022-05-07] MEDS: Carvedilol 6.25 MG TAB PO SCH ×2 (09:00→17:53)
[2022-05-07] MEDS ORDERED: Heparin 10,000 UNITS/ 10 ML VIAL ONE (13:56)
[2022-05-07] MEDS: Folic Acid 1 MG TAB PO SCH (15:23)
[2022-05-07] MEDS: Multivit, Therapeutic 1 TAB PO SCH (15:24)
[2022-05-07] MEDS: HYDROcodone/Acetaminophen 5/325 mg Tablet PO PRN (15:26)
[2022-05-07] MEDS: Thiamine 100 MG TAB PO SCH (17:53)
[2022-05-07] MEDS: Cephalexin 250 MG CAP PO SCH (17:56)
[2022-05-08 05:40] LABS: #Basophils 0.1 thou/uL (0.0-0.2); #Eosinphils 0.1 thou/uL (0.0-0.7); #Lymphocytes 0.9 thou/uL (1.20-3.40); #Monocytes 0.8 thou/uL (0.11-0.59); #Neutrophils 4.7 thou/uL (1.40-6.50); %Basophils 1.2 % (0.0-1.0); %Eosinophils 1.8 % (0.0-10.0); %Lymphocytes 13.3 % (21.0-51.0); %Monocytes 12.6 % (0.0-10.0); Hemoglobin 10.8 g/dL (14.0-18.0); Mean Corpuscular HGB CONC 32.8 g/dL (32.0-36.0); Mean Corpuscular Hemoglobin 31.4 pg (27.0-31.0); Mean Corpuscular Volume 95.8 fl (78.0-98.0); Mean Platelet Volume 8.1 fL (7.4-10.4); Platelet Count 287 10x3/uL (130-400); RBC Distribution Width 15.8 % (11.5-14.5); Red Blood Cell (RBC) Count 3.44 mill/uL (4.70-6.10); White Blood Cell (WBC) Count 6.7 10x3/uL (4.8-10.8)
[2022-05-08 05:58] LABS: Anion Gap 13 mmol/L (10-20); BUN (Urea Nitrogen) 35 mg/dL (8.9-20.6); Calc. Creatinine Clearance 39 mL/min (70-130); Calcium 8.3 mg/dL (7.8-10.44); Carbon Dioxide 27 mmol/L (22-29); Chloride 98 mmol/L (98-107); Estimated GFR 15; Glucose 79 mg/dL (70-105); Potassium 4.2 mmol/L (3.5-5.1); Sodium 134 mmol/L (136-145)
[2022-05-08] MEDS: Sevelamer Carbonate 800 MG TAB PO SCH ×3 (08:41→17:32)
[2022-05-08] MEDS: Multivit, Therapeutic 1 TAB PO SCH (08:41)
[2022-05-08] MEDS: Heparin 5,000 UNITS/ML VIAL SC SCH ×2 (08:41→20:30)
[2022-05-08] MEDS: Carvedilol 6.25 MG TAB PO SCH ×2 (08:41→17:32)
[2022-05-08] MEDS: Folic Acid 1 MG TAB PO SCH (08:41)
[2022-05-08] MEDS: Nicotine 21 MG PATCH TD SCH (08:41)
[2022-05-08] MEDS: Cephalexin 250 MG CAP PO SCH (17:34)
[2022-05-08] MEDS: Thiamine 100 MG TAB PO SCH (17:34)
[2022-05-09 06:13] LABS: #Basophils 0.1 thou/uL (0.0-0.2); #Eosinphils 0.2 thou/uL (0.0-0.7); #Monocytes 0.7 thou/uL (0.11-0.59); #Neutrophils 5.3 thou/uL (1.40-6.50); %Basophils 1.3 % (0.0-1.0); %Eosinophils 3.3 % (0.0-10.0); %Lymphocytes 14.2 % (21.0-51.0); %Monocytes 8.8 % (0.0-10.0); %Neutrophils 72.5 % (42.0-75.0); Mean Corpuscular HGB CONC 31.9 g/dL (32.0-36.0); Mean Corpuscular Hemoglobin 30.2 pg (27.0-31.0); Mean Corpuscular Volume 94.8 fl (78.0-98.0); Mean Platelet Volume 7.9 fL (7.4-10.4); Platelet Count 313 10x3/uL (130-400); RBC Distribution Width 15.8 % (11.5-14.5); Red Blood Cell (RBC) Count 3.65 mill/uL (4.70-6.10); White Blood Cell (WBC) Count 7.3 10x3/uL (4.8-10.8)
[2022-05-09 06:31] LABS: Anion Gap 15 mmol/L (10-20); BUN (Urea Nitrogen) 43 mg/dL (8.9-20.6); Calc. Creatinine Clearance 36 mL/min (70-130); Calcium 8.6 mg/dL (7.8-10.44); Carbon Dioxide 27 mmol/L (22-29); Chloride 97 mmol/L (98-107); Estimated GFR 13; Glucose 80 mg/dL (70-105); Potassium 4.3 mmol/L (3.5-5.1); Sodium 135 mmol/L (136-145)
[2022-05-09] MEDS ORDERED: Heparin 10,000 UNITS/ 10 ML VIAL ONE (13:46)
[2022-05-09] MEDS: Heparin 5,000 UNITS/ML VIAL SC SCH ×2 (13:52→20:16)
[2022-05-09] MEDS: Carvedilol 6.25 MG TAB PO SCH ×2 (13:52→17:10)
[2022-05-09] MEDS: Multivit, Therapeutic 1 TAB PO SCH (13:52)
[2022-05-09] MEDS: Nicotine 21 MG PATCH TD SCH (13:52)
[2022-05-09] MEDS: Folic Acid 1 MG TAB PO SCH (13:52)
[2022-05-09] MEDS: Sevelamer Carbonate 800 MG TAB PO SCH ×3 (13:53→17:10)
[2022-05-09 15:21] LABS: Bacteria/HPF None Seen HPF (None Seen); Bilirubin Negative (Negative); Blood, Urine Negative (Negative); Clarity Clear (Clear); Glucose, Urine (Dipstick) Normal (Negative); Ketone, Urine Negative (Negative); Leukocyte Negative Leu/uL (Negative); Nitrite Negative (Negative); Protein, Urine (Dipstick) 30 mg/dL (Neg-Trace); RBC/HPF 0-3 HPF (0-3); Specific Gravity, Urine 1.009 (1.002-1.036); Squamous Epithelial None Seen HPF (0-3); Urobilinogen Normal mg/dL (Less than 2); pH, Urine 6.5 (5.0-9.0)
[2022-05-09 15:49] LABS: Creatinine, Urine 66.99 mg/dL (63-166)
[2022-05-09] MEDS: Thiamine 100 MG TAB PO SCH (17:10)
[2022-05-09] MEDS: Cephalexin 250 MG CAP PO SCH (17:10)
[2022-05-09] MEDS: HYDROcodone/Acetaminophen 5/325 mg Tablet PO PRN (23:26)
[2022-05-10 06:22] LABS: #Basophils 0.1 thou/uL (0.0-0.2); #Eosinphils 0.4 thou/uL (0.0-0.7); #Lymphocytes 1.3 thou/uL (1.20-3.40); #Monocytes 0.8 thou/uL (0.11-0.59); #Neutrophils 4.5 thou/uL (1.40-6.50); %Basophils 1.5 % (0.0-1.0); %Eosinophils 5.2 % (0.0-10.0); %Lymphocytes 18.3 % (21.0-51.0); %Monocytes 10.7 % (0.0-10.0); %Neutrophils 64.3 % (42.0-75.0); Hemoglobin 11.3 g/dL (14.0-18.0); Mean Corpuscular HGB CONC 32.4 g/dL (32.0-36.0); Mean Corpuscular Hemoglobin 30.5 pg (27.0-31.0); Mean Corpuscular Volume 94.2 fl (78.0-98.0); Platelet Count 268 10x3/uL (130-400); RBC Distribution Width 15.8 % (11.5-14.5)
[2022-05-10 07:13] LABS: Anion Gap 13 mmol/L (10-20); BUN (Urea Nitrogen) 28 mg/dL (8.9-20.6); Calc. Creatinine Clearance 51 mL/min (70-130); Calcium 8.8 mg/dL (7.8-10.44); Carbon Dioxide 27 mmol/L (22-29); Chloride 97 mmol/L (98-107); Estimated GFR 22; Glucose 78 mg/dL (70-105); Sodium 133 mmol/L (136-145)
[2022-05-10] MEDS: Carvedilol 6.25 MG TAB PO SCH ×2 (07:49→18:05)
[2022-05-10] MEDS: Multivit, Therapeutic 1 TAB PO SCH (07:49)
[2022-05-10] MEDS: Sevelamer Carbonate 800 MG TAB PO SCH ×3 (07:50→18:04)
[2022-05-10] MEDS: Nicotine 21 MG PATCH TD SCH (07:50)
[2022-05-10] MEDS: Folic Acid 1 MG TAB PO SCH (07:50)
[2022-05-10] MEDS: Heparin 5,000 UNITS/ML VIAL SC SCH ×2 (07:50→20:59)
[2022-05-10] MEDS: HYDROcodone/Acetaminophen 5/325 mg Tablet PO PRN (16:17)
[2022-05-10] MEDS: Thiamine 100 MG TAB PO SCH (18:05)
[2022-05-10] MEDS: Cephalexin 250 MG CAP PO SCH (18:07)
[2022-05-11 05:53] LABS: #Basophils 0.1 thou/uL (0.0-0.2); #Eosinphils 0.5 thou/uL (0.0-0.7); #Lymphocytes 1.1 thou/uL (1.20-3.40); #Monocytes 0.7 thou/uL (0.11-0.59); #Neutrophils 4.5 thou/uL (1.40-6.50); %Basophils 1.2 % (0.0-1.0); %Eosinophils 6.8 % (0.0-10.0); %Lymphocytes 15.9 % (21.0-51.0); %Monocytes 9.5 % (0.0-10.0); %Neutrophils 66.6 % (42.0-75.0); Hemoglobin 10.9 g/dL (14.0-18.0); Mean Corpuscular HGB CONC 32.5 g/dL (32.0-36.0); Mean Corpuscular Hemoglobin 30.4 pg (27.0-31.0); Mean Corpuscular Volume 93.5 fl (78.0-98.0); Mean Platelet Volume 7.8 fL (7.4-10.4); Platelet Count 272 10x3/uL (130-400); RBC Distribution Width 16.1 % (11.5-14.5); Red Blood Cell (RBC) Count 3.59 mill/uL (4.70-6.10); White Blood Cell (WBC) Count 6.8 10x3/uL (4.8-10.8)
[2022-05-11 06:12] LABS: Anion Gap 15 mmol/L (10-20); BUN (Urea Nitrogen) 34 mg/dL (8.9-20.6); Calc. Creatinine Clearance 48 mL/min (70-130); Calcium 8.6 mg/dL (7.8-10.44); Carbon Dioxide 26 mmol/L (22-29); Chloride 99 mmol/L (98-107); Estimated GFR 20; Glucose 81 mg/dL (70-105); Potassium 3.9 mmol/L (3.5-5.1); Sodium 136 mmol/L (136-145)
[2022-05-11] MEDS ORDERED: Carvedilol 25 MG TAB PO SCH (08:15)
[2022-05-11] MEDS: Heparin 5,000 UNITS/ML VIAL SC SCH ×2 (08:41→20:43)
[2022-05-11] MEDS: Folic Acid 1 MG TAB PO SCH (08:41)
[2022-05-11] MEDS: Nicotine 21 MG PATCH TD SCH (08:41)
[2022-05-11] MEDS: Multivit, Therapeutic 1 TAB PO SCH (08:41)
[2022-05-11] MEDS: Sevelamer Carbonate 800 MG TAB PO SCH ×3 (08:41→16:41)
[2022-05-11] MEDS: Carvedilol 6.25 MG TAB PO SCH (08:49)
[2022-05-11] MEDS: HYDROcodone/Acetaminophen 5/325 mg Tablet PO PRN (13:37)
[2022-05-11] MEDS: Carvedilol 25 MG TAB PO SCH (16:41)
[2022-05-11] MEDS: Cephalexin 250 MG CAP PO SCH (18:31)
[2022-05-11] MEDS: Thiamine 100 MG TAB PO SCH (18:31)
[2022-05-12] MEDS: Labetalol HCl 100 MG/20 ML VIAL SLOW IVP PRN (00:10)
[2022-05-12 05:57] LABS: #Basophils 0.1 thou/uL (0.0-0.2); #Eosinphils 0.5 thou/uL (0.0-0.7); #Lymphocytes 1.1 thou/uL (1.20-3.40); #Monocytes 0.7 thou/uL (0.11-0.59); #Neutrophils 4.3 thou/uL (1.40-6.50); %Basophils 1.2 % (0.0-1.0); %Eosinophils 7.7 % (0.0-10.0); %Lymphocytes 16.9 % (21.0-51.0); %Monocytes 10.2 % (0.0-10.0); Hemoglobin 11.1 g/dL (14.0-18.0); Mean Corpuscular HGB CONC 33.4 g/dL (32.0-36.0); Mean Platelet Volume 7.6 fL (7.4-10.4); Platelet Count 325 10x3/uL (130-400); RBC Distribution Width 15.8 % (11.5-14.5); Red Blood Cell (RBC) Count 3.59 mill/uL (4.70-6.10); White Blood Cell (WBC) Count 6.7 10x3/uL (4.8-10.8)
[2022-05-12 06:27] LABS: Anion Gap 14 mmol/L (10-20); BUN (Urea Nitrogen) 37 mg/dL (8.9-20.6); Calc. Creatinine Clearance 55 mL/min (70-130); Calcium 8.7 mg/dL (7.8-10.44); Carbon Dioxide 28 mmol/L (22-29); Chloride 99 mmol/L (98-107); Estimated GFR 24; Glucose 80 mg/dL (70-105); Potassium 3.8 mmol/L (3.5-5.1); Sodium 137 mmol/L (136-145)
[2022-05-12] MEDS: Nicotine 21 MG PATCH TD SCH (07:21)
[2022-05-12] MEDS: Carvedilol 25 MG TAB PO SCH ×2 (07:21→18:07)
[2022-05-12] MEDS: Heparin 5,000 UNITS/ML VIAL SC SCH ×2 (07:21→20:05)
[2022-05-12] MEDS ORDERED: Heparin 10,000 UNITS/ 10 ML VIAL ONE (08:30)
[2022-05-12] MEDS: Amlodipine 5 MG TAB PO SCH (14:26)
[2022-05-12] MEDS: Folic Acid 1 MG TAB PO SCH (14:26)
[2022-05-12] MEDS: Multivit, Therapeutic 1 TAB PO SCH (14:26)
[2022-05-12] MEDS: Sevelamer Carbonate 800 MG TAB PO SCH ×2 (14:27→18:07)
[2022-05-12] MEDS: HYDROcodone/Acetaminophen 5/325 mg Tablet PO PRN (14:30)
[2022-05-12] MEDS: Thiamine 100 MG TAB PO SCH (18:07)
[2022-05-12] MEDS: Cephalexin 250 MG CAP PO SCH (18:07)
[2022-05-13 05:35] LABS: Anion Gap 11 mmol/L (10-20); BUN (Urea Nitrogen) 22 mg/dL (8.9-20.6); Calc. Creatinine Clearance 39 mL/min (70-130); Calcium 8.9 mg/dL (7.8-10.44); Carbon Dioxide 29 mmol/L (22-29); Chloride 98 mmol/L (98-107); Estimated GFR 42; Glucose 80 mg/dL (70-105); Potassium 3.5 mmol/L (3.5-5.1); Sodium 134 mmol/L (136-145)
[2022-05-13] MEDS: Amlodipine 5 MG TAB PO SCH (08:37)
[2022-05-13] MEDS: Sevelamer Carbonate 800 MG TAB PO SCH (08:37)
[2022-05-13] MEDS: Nicotine 21 MG PATCH TD SCH (08:37)
[2022-05-13] MEDS: Heparin 5,000 UNITS/ML VIAL SC SCH (08:37)
[2022-05-13] MEDS: Carvedilol 25 MG TAB PO SCH (08:38)
[2022-05-13] MEDS: Multivit, Therapeutic 1 TAB PO SCH (08:38)
[2022-05-13] MEDS: Folic Acid 1 MG TAB PO SCH (08:38)
[2022-05-13 12:18] VITALS: BP 170/100; TEMP 99.4
[2022-05-13] MEDS: Cephalexin 250 MG CAP PO SCH (12:27)
== END 2022-05-13 12:38 | disposition home or self-care (01) | DRG 871 ==
LOC: ERS 13:37 → ERHOLD 15:41 → IMCU/EMU 20:52 → CCU 04-21 17:59 → IMCU/EMU 04-24 11:13 → T4-A 05-01 17:50
PROVIDERS: ADMIT Hospitalist; ATTEND Internal Medicine
PROC: 3E0234Z Introduction of Serum, Toxoid and Vaccine into Muscle, Percutaneous Approach (ICD-10-PCS; 2022-04-20)
PROC: 30233J1 Transfusion of Nonautologous Serum Albumin into Peripheral Vein, Percutaneous Approach (ICD-10-PCS; 2022-04-20)
PROC: 3E03329 Introduction of Other Anti-infective into Peripheral Vein, Percutaneous Approach (ICD-10-PCS; 2022-04-20)
PROC: 02HV33Z Insertion of Infusion Device into Superior Vena Cava, Percutaneous Approach (ICD-10-PCS; principal; 2022-04-21)
PROC: B548ZZA Ultrasonography of Superior Vena Cava, Guidance (ICD-10-PCS; 2022-04-21)
PROC: 3E033XZ Introduction of Vasopressor into Peripheral Vein, Percutaneous Approach (ICD-10-PCS; 2022-04-21)
PROC: 5A1D70Z Performance of Urinary Filtration, Intermittent, Less than 6 Hours Per Day (ICD-10-PCS; 2022-04-22)
PROC: 06HY33Z Insertion of Infusion Device into Lower Vein, Percutaneous Approach (ICD-10-PCS; 2022-04-25)
DX: A40.9 Streptococcal sepsis, unspecified (principal); G93.41 Metabolic encephalopathy; I21.A1 Myocardial infarction type 2; R65.21 Severe sepsis with septic shock; N17.0 Acute kidney failure with tubular necrosis; J96.01 Acute respiratory failure with hypoxia; J96.02 Acute respiratory failure with hypercapnia; E87.1 Hypo-osmolality and hyponatremia; R18.8 Other ascites; L03.115 Cellulitis of right lower limb; L03.116 Cellulitis of left lower limb; Z68.42 Body mass index [BMI] 45.0-49.9, adult; I13.0 Hypertensive heart and chronic kidney disease with heart failure and stage 1 through stage 4 chronic kidney disease, or unspecified chronic kidney disease; A41.2 Sepsis due to unspecified staphylococcus; K42.9 Umbilical hernia without obstruction or gangrene; I83.893 Varicose veins of bilateral lower extremities with other complications; E66.01 Morbid (severe) obesity due to excess calories; D69.6 Thrombocytopenia, unspecified; F17.210 Nicotine dependence, cigarettes, uncomplicated; E83.39 Other disorders of phosphorus metabolism; Z20.822 Contact with and (suspected) exposure to COVID-19; I50.9 Heart failure, unspecified; N18.9 Chronic kidney disease, unspecified; F10.10 Alcohol abuse, uncomplicated; R04.0 Epistaxis; E87.5 Hyperkalemia
CPT/HCPCS: 36415; 36600; 71045; 76705; 76770; 80048; 80053; 80061; 80074; 80202; 81001; 82140; 82553; 82570; 82805; 83605; 83735; 83880; 84100; 84145; 84300; 84443; 84484; 85025; 85060; 85610; 85730; 86706; 87040; 87070; 87077; 87149; 87186; 87205; 87340; 87811; 90935; 93005; 93306; 94660; 96361; 96365; 96375; 97139; C9113; G0257; J0692; J1642; J1644; J1650; J1940; J2060; J2540; J2543; J2700; J3370; J3411; J3490; J7050; P9047; U0002; U0003; U0005

== ENCOUNTER 2022-06-16 18:00 | Outpatient (CLI) | payer BC | END 2022-06-16 18:01 | disposition home or self-care (01) | LOC: SLEEPLAB 18:00 | PROVIDERS: ATTEND Nurse Practitioner | DX: G47.33 Obstructive sleep apnea (adult) (pediatric) (principal) | CPT/HCPCS: 95800 ==

== ENCOUNTER 2022-12-08 19:00 | Outpatient (CLI) | payer BC | END 2022-12-08 19:01 | disposition home or self-care (01) | LOC: SLEEPLAB 19:00 | PROVIDERS: ATTEND Nurse Practitioner | DX: G47.33 Obstructive sleep apnea (adult) (pediatric) (principal); E66.9 Obesity, unspecified; R06.83 Snoring; I10 Essential (primary) hypertension; G47.10 Hypersomnia, unspecified; Z68.39 Body mass index [BMI] 39.0-39.9, adult | CPT/HCPCS: 95811 ==

== ENCOUNTER 2023-05-28 11:02 | Inpatient (IN) | payer BC, SELFPAY ==
[2023-05-28 11:28] LABS: #Monocytes 0.5 thou/uL (0.11-0.59); #Neutrophils 2.7 thou/uL (1.40-6.50); %Basophils 0.7 % (0.0-1.0); %Eosinophils 0.9 % (0.0-10.0); %Lymphocytes 22.5 % (21.0-51.0); %Neutrophils 64.2 % (42.0-75.0); Hemoglobin 14.5 g/dL (14.0-18.0); Mean Corpuscular HGB CONC 32.2 g/dL (32.0-36.0); Mean Corpuscular Hemoglobin 31.6 pg (27.0-31.0); Mean Platelet Volume 11.6 fL (7.4-10.4); Platelet Count 106 10x3/uL (130-400); RBC Distribution Width 15.9 % (11.5-14.5); Red Blood Cell (RBC) Count 4.59 mill/uL (4.70-6.10); White Blood Cell (WBC) Count 4.3 10x3/uL (4.8-10.8)
[2023-05-28 11:51] LABS: CellaVision Operator ID LAB.KW3; Platelet Adequacy Comment Platelets Decreased; RBC Morphology Within Normal Limits
[2023-05-28 12:03] LABS: ALT (SGPT) 113 U/L (8-55); AST (SGOT) 156 U/L (5-34); Albumin 3.7 g/dL (3.5-5.0); Alkaline Phosphatase 80 U/L (40-110); Anion Gap 11 mmol/L (10-20); BUN (Urea Nitrogen) 13 mg/dL (8.9-20.6); Bilirubin, Total 1.2 mg/dL (0.2-1.2); Calc. Creatinine Clearance 0 mL/min (70-130); Calcium 9.3 mg/dL (7.8-10.44); Carbon Dioxide 32 mmol/L (22-29); Chloride 102 mmol/L (98-107); Estimated GFR 116; Globulin 3.7 g/dL (2.4-3.5); Glucose 98 mg/dL (70-105); Potassium 4.4 mmol/L (3.5-5.1); Protein, Total 7.4 g/dL (6.0-8.3); Sodium 141 mmol/L (136-145)
[2023-05-28] MEDS ORDERED: predniSONE 20 MG TAB ONE (12:03)
[2023-05-28] MEDS ORDERED: Sodium Chloride 0.9% 100 ML ONE (12:04)
[2023-05-28] MEDS ORDERED: Magnesium 2 GM/50 ML BAG (IN WATER) ONE (12:04)
[2023-05-28] MEDS ORDERED: cefTRIAXone (ROCEPHIN) 2 GM VIAL ONE (12:04)
[2023-05-28 12:07] LABS: Troponin I 0.017 ng/mL (< 0.028)
[2023-05-28 12:16] LABS: Actual Bicarbonate (HCO3v) 33.1 mEq/L (22-28); Analyzer IN Cardio ER; Base Excess 6.4 mEq/L (-2.0 to +3.0); Calcium, Ionized (venous) 1.08 mmol/L (1.16-1.32); Chloride (VBG) 100 mmol/L (98-106); Hematocrit-VBG 44 % (42.0-52.0); Hemoglobin (Hb) 15.1 g/dL (13.2-17.3); Potassium (VBG) 5.09 mmol/L (3.70-5.30); Sodium 136 mmol/L (133-146); pH (venous) 7.393 (7.32-7.43)
[2023-05-28 12:45] LABS: Influenza A by NAA Not Detected (NotDetected); Influenza B by NAA Not Detected (NotDetected); SARS-CoV-2 NAA Rapid Test Not Detected (NotDetected)
[2023-05-28] MEDS ORDERED: Furosemide 20 MG (2 mL) VIAL ONE (13:11)
[2023-05-28] MEDS ORDERED: Vancomycin 1 GM/200 ML (FROZEN) BAG ONE (13:22)
[2023-05-28] MEDS ORDERED: Senokot S 8.6-50 MG TAB PO PRN (14:31)
[2023-05-28] MEDS ORDERED: Calcium Carbonate 500 MG ChewTAB PO PRN (14:31)
[2023-05-28] MEDS ORDERED: Acetaminophen 325 MG TAB PO PRN (14:31)
[2023-05-28] MEDS ORDERED: Ondansetron PF 4 MG/2 ML Vial IVP PRN (14:31)
[2023-05-28] MEDS ORDERED: Nitroglycerin 2% Ointment 1 INCH/1 GM Packet ONE (14:55)
[2023-05-28] MEDS ORDERED: Lorazepam 1 MG TAB PO PRN (15:29)
[2023-05-28 15:30] LABS: Troponin I 0.023 ng/mL (< 0.028)
[2023-05-28 16:22] LABS: Bacteria/HPF None Seen HPF (None Seen); Bilirubin Negative (Negative); Blood, Urine Negative (Negative); CAUTI Indications for Culture Pelvic or flank pain; Clarity Clear (Clear); Glucose, Urine (Dipstick) Normal (Negative); Ketone, Urine Negative (Negative); Leukocyte Negative Leu/uL (Negative); Nitrite Negative (Negative); Protein, Urine (Dipstick) Negative (Neg-Trace); RBC/HPF None Seen HPF (0-3); Specific Gravity, Urine 1.014 (1.002-1.036); Squamous Epithelial None Seen HPF (0-3); Urobilinogen Normal mg/dL (Less than 2); WBC/HPF 0-3 HPF (0-3); pH, Urine 5.5 (5.0-9.0)
[2023-05-28 16:29] LABS: Urine Culture Reflex No No
[2023-05-28] MEDS: Multivit, Therapeutic 1 TAB PO SCH (17:53)
[2023-05-28] MEDS: Carvedilol 25 MG TAB PO SCH (17:53)
[2023-05-28] MEDS: Folic Acid 1 MG TAB PO SCH (17:53)
[2023-05-28] MEDS: FLU VACC QS2023-24(6MOS UP)/PF 60 MCG/0.5 ML SYRINGE IM ONE (17:53)
[2023-05-28] MEDS: Lorazepam 1 MG TAB PO SCH (17:56)
[2023-05-28 18:05] VITALS: BMI 43.2
[2023-05-28] MEDS ORDERED: hydrALAZINE 20 MG/ML VIAL SLOW IVP SCH (18:30)
[2023-05-28 18:52] LABS: Troponin I Less than 0.010 ng/mL (< 0.028)
[2023-05-28] MEDS: hydrALAZINE 20 MG/ML VIAL SLOW IVP SCH (19:02)
[2023-05-28] MEDS: Thiamine HCl 200 MG/2 ML VIAL SLOW IVP SCH (19:11)
[2023-05-28] MEDS: Amlodipine 5 MG TAB PO SCH (21:05)
[2023-05-28] MEDS: hydrALAZINE 25 MG TAB PO SCH (21:06)
[2023-05-28] MEDS ORDERED: Ipratropium/Albuterol 3 ML NEB NEB PRN (23:07)
[2023-05-29] MEDS: Vancomycin (BATCH) 2 GM in Premix 1 BAG IVPB SCH (00:21)
[2023-05-29] MEDS ORDERED: Electrolyte Replacement Protocol 1 EACH FS SCH (01:15)
[2023-05-29] MEDS: CEFAZOLIN 1 GM in Sodium Chloride 0.9% 100 ML IVPB SCH (05:23)
[2023-05-29] MEDS: Furosemide 40 MG (4 mL) VIAL SLOW IVP SCH (05:23)
[2023-05-29 05:39] LABS: #Monocytes 0.7 thou/uL (0.11-0.59); #Neutrophils 3.9 thou/uL (1.40-6.50); %Basophils 0.7 % (0.0-1.0); %Eosinophils 0.5 % (0.0-10.0); %Lymphocytes 17.9 % (21.0-51.0); %Monocytes 12.8 % (0.0-10.0); %Neutrophils 66.7 % (42.0-75.0); Hematocrit 46.7 % (42.0-52.0); Hemoglobin 14.5 g/dL (14.0-18.0); Mean Corpuscular Hemoglobin 31.5 pg (27.0-31.0); Mean Platelet Volume 11.8 fL (7.4-10.4); Platelet Count 123 10x3/uL (130-400); RBC Distribution Width 15.9 % (11.5-14.5); White Blood Cell (WBC) Count 5.8 10x3/uL (4.8-10.8)
[2023-05-29 05:43] LABS: Mean Corpuscular Volume 101.5 fl (78.0-98.0)
[2023-05-29 05:56] LABS: Prothrombin Time 13.4 sec (12.0-14.7)
[2023-05-29 06:06] LABS: ALT (SGPT) 89 U/L (8-55); AST (SGOT) 92 U/L (5-34); Albumin 3.7 g/dL (3.5-5.0); Alkaline Phosphatase 79 U/L (40-110); Anion Gap 10 mmol/L (10-20); BUN (Urea Nitrogen) 17 mg/dL (8.9-20.6); Bilirubin, Total 0.9 mg/dL (0.2-1.2); Calc. Creatinine Clearance 224 mL/min (70-130); Calcium 9.2 mg/dL (7.8-10.44); Carbon Dioxide 34 mmol/L (22-29); Chloride 99 mmol/L (98-107); Estimated GFR 113; Globulin 3.6 g/dL (2.4-3.5); Glucose 108 mg/dL (70-105); Magnesium 1.8 mg/dL (1.6-2.6); Potassium 4.1 mmol/L (3.5-5.1); Protein, Total 7.3 g/dL (6.0-8.3); Sodium 139 mmol/L (136-145)
[2023-05-29 06:13] LABS: Bilirubin, Direct 0.5 mg/dL (0.1-0.3); Phosphorus 4.6 mg/dL (2.3-4.7)
[2023-05-29 08:07] LABS: Amphetamine Not Detected (NotDetected); Barbiturates Screen Not Detected (NotDetected); Benzodiazepine Screen Detected (NotDetected); Cocaine Metabolite Screen Not Detected (NotDetected); Methadone Not Detected (NotDetected); Methamphetamine Not Detected (NotDetected); Opiate Screen Not Detected (NotDetected); Oxycodone Screen Not Detected (NotDetected); Phencyclidine (PCP) Not Detected (NotDetected); THC/Cannabinoid Screen Not Detected (NotDetected); Tricyclic Screen Not Detected (NotDetected)
[2023-05-29] MEDS: Losartan 25 MG TAB PO SCH (08:51)
[2023-05-29] MEDS: Multivit, Therapeutic 1 TAB PO SCH (08:51)
[2023-05-29] MEDS: Folic Acid 1 MG TAB PO SCH (08:51)
[2023-05-29] MEDS: Enoxaparin 40 MG (0.4 mL) SYRINGE SC SCH (08:52)
[2023-05-29] MEDS: predniSONE 50 MG TAB PO SCH (08:52)
[2023-05-29] MEDS: Magnesium 2 GM/50 ML(in water) 2 GM in Premix 1 BAG IVPB SCH (08:52)
[2023-05-29] MEDS ORDERED: Amlodipine 5 MG TAB PO SCH (09:00)
[2023-05-29] MEDS ORDERED: Lorazepam 1 MG TAB PO PRN (15:29)
[2023-05-29] MEDS: Nicotine 21 MG PATCH TD SCH (17:19)
[2023-05-30] MEDS: hydrALAZINE 25 MG TAB PO PRN (01:36)
[2023-05-30] MEDS ORDERED: Lorazepam 1 MG TAB PO PRN (15:29)
[2023-05-30] MEDS ORDERED: Lorazepam 0.5 MG TAB PO SCH (15:30)
[2023-05-31 07:42] LABS: #Eosinphils 0.1 thou/uL (0.0-0.7); #Monocytes 0.8 thou/uL (0.11-0.59); #Neutrophils 4.2 thou/uL (1.40-6.50); %Basophils 0.6 % (0.0-1.0); %Eosinophils 1.1 % (0.0-10.0); %Lymphocytes 20.2 % (21.0-51.0); %Monocytes 12.6 % (0.0-10.0); %Neutrophils 64.9 % (42.0-75.0); Hematocrit 48.6 % (42.0-52.0); Hemoglobin 15.5 g/dL (14.0-18.0); Mean Corpuscular HGB CONC 31.9 g/dL (32.0-36.0); Mean Corpuscular Hemoglobin 30.8 pg (27.0-31.0); Mean Corpuscular Volume 96.4 fl (78.0-98.0); Mean Platelet Volume 11.8 fL (7.4-10.4); Platelet Count 144 10x3/uL (130-400); Red Blood Cell (RBC) Count 5.04 mill/uL (4.70-6.10); White Blood Cell (WBC) Count 6.5 10x3/uL (4.8-10.8)
[2023-05-31 08:05] LABS: Anion Gap 16 mmol/L (10-20); BUN (Urea Nitrogen) 13 mg/dL (8.9-20.6); Calc. Creatinine Clearance 243 mL/min (70-130); Calcium 9.4 mg/dL (7.8-10.44); Carbon Dioxide 36 mmol/L (22-29); Chloride 92 mmol/L (98-107); Estimated GFR 115; Glucose 81 mg/dL (70-105); Potassium 3.6 mmol/L (3.5-5.1); Sodium 140 mmol/L (136-145)
[2023-05-31] MEDS ORDERED: Amlodipine 10 MG TAB PO SCH (09:00)
[2023-05-31] MEDS: Thiamine 100 MG TAB PO SCH (14:25)
[2023-05-31] MEDS ORDERED: Lorazepam 0.5 MG TAB PO PRN (15:29)
[2023-06-01 08:03] VITALS: TEMP 97.8
[2023-06-01] MEDS: Losartan 25 MG TAB PO SCH (08:26)
[2023-06-01] MEDS: Carvedilol 6.25 MG TAB PO SCH (08:27)
[2023-06-01] MEDS: hydrALAZINE 20 MG/ML VIAL SLOW IVP SCH (13:09)
[2023-06-01 14:20] VITALS: BP 157/87
[2023-06-02] MEDS ORDERED: Spironolactone 25 MG TAB PO SCH (08:00)
== END 2023-06-01 14:16 | disposition home or self-care (01) | DRG 291 ==
LOC: SUATTDRO 11:02 → ERS 11:02 → 2NO 14:30
PROVIDERS: ADMIT Internal Medicine; ATTEND Internal Medicine
DX: I11.0 Hypertensive heart disease with heart failure (principal); I50.33 Acute on chronic diastolic (congestive) heart failure; J96.01 Acute respiratory failure with hypoxia; J44.1 Chronic obstructive pulmonary disease with (acute) exacerbation; L03.116 Cellulitis of left lower limb; E66.2 Morbid (severe) obesity with alveolar hypoventilation; R78.81 Bacteremia; Z68.41 Body mass index [BMI] 40.0-44.9, adult; F10.20 Alcohol dependence, uncomplicated; F17.210 Nicotine dependence, cigarettes, uncomplicated; E78.5 Hyperlipidemia, unspecified; Z79.899 Other long term (current) drug therapy; Z71.6 Tobacco abuse counseling
CPT/HCPCS: 36415; 36416; 71045; 71275; 80048; 80053; 80202; 80306; 81001; 82248; 82805; 83605; 83735; 83880; 84100; 84443; 84484; 85025; 85379; 85610; 87040; 87086; 87149; 93005; 93306; 93798; 94760; 96365; 96375; 97139; J0360; J0690; J0696; J1650; J1940; J3370; J3370-JW; J3411; J3475; J3490; J7512